=== PATIENT | male | born 1940 | race Caucasian/White ===

== ENCOUNTER → 2019-07-18 | Outpatient (CLI) | payer OTHER | END | disposition home or self-care (01) | LOC: SHCH 12:46 | PROVIDERS: ATTEND Internal Medicine Cardiovascular Disease | DX: I65.23 Occlusion and stenosis of bilateral carotid arteries (principal); I06.9 Rheumatic aortic valve disease, unspecified; I11.9 Hypertensive heart disease without heart failure | CPT/HCPCS: 93306; 93880 ==

== ENCOUNTER → 2021-03-19 | Outpatient (CLI) | payer OTHER | END | disposition home or self-care (01) | LOC: SHCH 11:11 | PROVIDERS: ATTEND Internal Medicine Cardiovascular Disease | DX: I25.10 Atherosclerotic heart disease of native coronary artery without angina pectoris (principal); R06.02 Shortness of breath | CPT/HCPCS: 93306; 93356 ==

== ENCOUNTER → 2021-04-18 | Outpatient (CLI) | payer OTHER ==
[~2021-04-18] VITALS: Ht 167.6 cm; Wt 88.0 kg
[~2021-04-18] MED LIST: REGADENOSON 0.4 MG/5 ML PF SYG IVP SCH
== END | disposition home or self-care (01) ==
LOC: SHCH 08:40
PROVIDERS: ATTEND Internal Medicine Cardiovascular Disease
DX: I20.9 Angina pectoris, unspecified (principal); R07.9 Chest pain, unspecified; R06.09 Other forms of dyspnea
CPT/HCPCS: 78452; 93017; 96374; A9500 ×2; J2785

== ENCOUNTER 2022-08-27 06:52 | Observation (INO) | payer OTHER ==
[2022-08-25 11:28] VITALS: BP 151/65
[2022-08-25 11:29] LABS: BASOPHILS % (AUTO) 1.4 % (0.0-5.0); EOSINOPHILS % (AUTO) 4.4 % (0.0-8.0); HEMATOCRIT 38.8 % (42-54); LYMPHOCYTES % (AUTO) 27.8 % (21.0-51.0); MEAN CORPUSCULAR HEMOGLOBIN 30.4 pg (27.0-33.0); MEAN CORPUSCULAR HGB CONC 32.7 g/dL (32.0-36.0); MEAN CORPUSCULAR VOLUME 92.8 fL (79-99); MONOCYTES % (AUTO) 8.6 % (3.0-13.0); NEUTROPHILS % (AUTO) 57.4 % (40.0-77.0); PLATELET COUNT (AUTO) 223 K/uL (130-400); RED BLOOD CELL COUNT(AUTO) 4.18 MIL/uL (4.50-6.20); RED CELL DISTRIBUTION WIDTH 13.2 % (11.0-15.5); WHITE BLOOD COUNT (AUTO) 7.2 K/uL (4.8-10.8)
[2022-08-25 11:32] LABS: APPEARANCE,URINE CLEAR (CLEAR); BILIRUBIN,URINE NEGATIVE (NEGATIVE); COLOR,URINE YELLOW (YELLOW); GLUCOSE, URINE (UA) NEGATIVE (NEGATIVE); KETONES,URINE NEGATIVE (NEGATIVE); LEUKOCYTE ESTERASE ,URINE NEGATIVE Leu/uL (NEGATIVE); NITRATE,URINE NEGATIVE (NEGATIVE); OCCULT BLOOD,URINE NEGATIVE (NEGATIVE); PROTEIN,URINE NEGATIVE (NEGATIVE); UROBILINOGEN,URINE 0.2 mg/dL (0.2-1.0)
[2022-08-25 11:39] LABS: INR 1.07 (0.85-1.15); PROTHROMBIN TIME 11.6 SEC (9.6-11.6)
[2022-08-25 11:40] LABS: PARTIAL THROMBOPLASTIN TIME 28.1 SEC (26.3-35.5)
[2022-08-25 11:56] LABS: POTASSIUM 4.1 mmol/L (3.5-5.1)
[2022-08-25 12:45] LABS: B-TYPE NATRIURETIC PEPTIDE 72 pg/mL (0-100)
[2022-08-27] VITALS (17 sets, daily range): BP systolic 112–168; BP diastolic 47–77
[~2022-08-27] VITALS: Ht 165.1 cm; Wt 81.8 kg
[~2022-08-27 06:52] MED LIST changes: +ATOR40TA71 PO; +INSU100V12 SQ; +ISOS60TA77 PO; +LEVO50CA4 PO; +LOSA50TA64 PO; +METF-446 PO; +METO25TA6 PO; +MONT-39 PO; +OMEP20TA20 PO; -REGADENOSON 0.4 MG/5 ML PF SYG IVP SCH
[2022-08-27] MEDS ORDERED: 0.9%NACL 1000ML 1,000 ML IV ONE (07:39)
[2022-08-27] MEDS ORDERED: NITROGLYCERIN 0.4 MG SL TAB SL PRN ×2 (08:30→11:30)
[2022-08-27] MEDS ORDERED: METOPROLOL TARTRATE 1 MG/ML 5ML VIAL IV PRN ×2 (08:30→11:30)
[2022-08-27] MEDS ORDERED: DEXTROSE 50%-WATER 50 ML DISP.SYRIN IV PRN ×2 (08:30→11:30)
[2022-08-27] MEDS ORDERED: GLUCAGON 1MG KIT 1 MG ML IM PRN ×2 (08:30→11:30)
[2022-08-27] MEDS ORDERED: NITROGLYCERIN 50MG VIAL ONE (08:58)
[2022-08-27] MEDS ORDERED: IOHEXOL 350 MG/ML 100ML INFUS..BTL IV ONE (08:58)
[2022-08-27] MEDS ORDERED: HEPARIN 10,000 UNIT/10ML (1,000 UNIT/ML) VIAL ONE (08:58)
[2022-08-27] MEDS ORDERED: LIDOCAINE HCL 1% 20 ML VIAL ONE (08:58)
[2022-08-27] MEDS ORDERED: BIVALIRUDIN 250 MG/VIAL IV ONE (08:58)
[2022-08-27] MEDS ORDERED: FENTANYL CITRATE PF 50 MCG/1 ML 2ML VIAL ONE (08:59)
[2022-08-27] MEDS ORDERED: MIDAZOLAM HCL 1 MG/ML 2ML VIAL ONE (08:59)
[2022-08-27] MEDS ORDERED: IOHEXOL-350 75 ML VIAL IV ONE ×2 (09:24→10:33)
[2022-08-27] MEDS ORDERED: TICAGRELOR 90 MG TABLET ONE (10:05)
[2022-08-27] MEDS ORDERED: LABETALOL 20MG VIAL IV ONE (10:15)
[2022-08-27] MEDS ORDERED: HYDRALAZINE 20MG/ML VIAL ONE (10:15)
[2022-08-27] MEDS ORDERED: ACETAMINOPHEN WITH CODEINE 1 TAB TAB PO PRN (11:30)
[2022-08-27] MEDS ORDERED: INSULIN HUMULIN R 100 UNIT/ML 3ML SQ SCH (11:30)
[2022-08-27] MEDS ORDERED: 0.9%NACL 1000ML 1,000 ML IV SCH (11:30)
[2022-08-27] MEDS: INSULIN HUMULIN R 100 UNIT/ML 3ML SQ SCH ×3 (12:00→21:00)
[2022-08-27] MEDS ORDERED: ACETAMINOPHEN 500 MG TABLET ONE (13:29)
[2022-08-27] MEDS ORDERED: HYDRALAZINE 20MG/ML VIAL IV PRN (19:30)
[2022-08-27] MEDS ORDERED: LABETALOL 20MG VIAL IV PRN (19:30)
[2022-08-27] MEDS: LOSARTAN 50 MG TABLET PO SCH (20:25)
[2022-08-27] MEDS: METOPROLOL TARTRATE 25 MG TAB PO SCH (20:25)
[2022-08-27] MEDS: PANTOPRAZOLE 40 MG TAB DR PO SCH (20:26)
[2022-08-27] MEDS ORDERED: ATORVASTATIN 40 MG TABLET PO SCH (21:00)
[2022-08-27] MEDS ORDERED: MONTELUKAST SODIUM 10 MG TAB PO SCH (21:00)
[2022-08-27] MEDS: INSULIN GLARGINE 100 UNITS/ML SQ SCH (21:18)
[2022-08-28 00:06] VITALS: BP 139/85
[2022-08-28 03:06] VITALS: BP 135/60
[2022-08-28 04:32] LABS: BASOPHILS % (AUTO) 0.9 % (0.0-5.0); HEMATOCRIT 37.3 % (42-54); LYMPHOCYTES % (AUTO) 31.3 % (21.0-51.0); MEAN CORPUSCULAR HEMOGLOBIN 29.9 pg (27.0-33.0); MEAN CORPUSCULAR HGB CONC 33.8 g/dL (32.0-36.0); MEAN CORPUSCULAR VOLUME 88.6 fL (79-99); MONOCYTES % (AUTO) 9.1 % (3.0-13.0); NEUTROPHILS % (AUTO) 54.4 % (40.0-77.0); PLATELET COUNT (AUTO) 244 K/uL (130-400); RED BLOOD CELL COUNT(AUTO) 4.21 MIL/uL (4.50-6.20); RED CELL DISTRIBUTION WIDTH 13.6 % (11.0-15.5); WHITE BLOOD COUNT (AUTO) 10.5 K/uL (4.8-10.8)
[2022-08-28 04:50] LABS: CREATININE 1.1 mg/dL (0.5-1.5); MAGNESIUM 1.4 mg/dL (1.80-2.40); PHOSPHORUS 3.7 mg/dL (2.5-4.9); POTASSIUM 3.4 mmol/L (3.5-5.1)
[2022-08-28] MEDS ORDERED: MAGNESIUM 2GM PREMIX 50ML 50 ML IV PRN (05:30)
[2022-08-28] MEDS ORDERED: POTASSIUM CHLORIDE 20MEQ/100ML 100 ML IV PRN (05:30)
[2022-08-28] MEDS ORDERED: POTASSIUM CHLORIDE 10% ELIXIR 20 MEQ/15 ML UDCUP PO PRN (05:30)
[2022-08-28] MEDS ORDERED: KCL 20 MEQ ERTAB PO PRN (05:30)
[2022-08-28] MEDS ORDERED: LIDOCAINE HCL-MPF 1% 2ML VIAL IV PRN (05:30)
[2022-08-28] MEDS ORDERED: LEVOTHYROXINE 50 MCG TABLET PO SCH (06:30)
[2022-08-28] MEDS: INSULIN HUMULIN R 100 UNIT/ML 3ML SQ SCH ×2 (06:48→11:37)
[2022-08-28] MEDS: LOSARTAN 50 MG TABLET PO SCH (08:34)
[2022-08-28] MEDS: METOPROLOL TARTRATE 25 MG TAB PO SCH (08:34)
[2022-08-28] MEDS: PANTOPRAZOLE 40 MG TAB DR PO SCH (08:34)
[2022-08-28] MEDS: INSULIN GLARGINE 100 UNITS/ML SQ SCH (08:44)
[2022-08-28 08:49] VITALS: BP 156/78
[2022-08-28] MEDS ORDERED: ASPIRIN 81 MG EC TAB PO SCH (09:00)
[2022-08-28] MEDS ORDERED: ISOSORBIDE MONO 60MG SR TAB PO SCH (09:00)
[2022-08-28] MEDS ORDERED: CLOPIDOGREL 75MG TAB PO SCH (09:00)
[2022-08-28 10:16] LABS: MAGNESIUM 1.8 mg/dL (1.80-2.40); POTASSIUM 3.6 mmol/L (3.5-5.1)
[2022-08-28 12:07] VITALS: BP 123/61
== END 2022-08-28 14:38 | disposition home or self-care (01) ==
LOC: DAH 06:52 → DAHIP 06:53 → 2DH 15:16
PROVIDERS: ADMIT Hospitalist; ATTEND Hospitalist
DX: I25.110 Atherosclerotic heart disease of native coronary artery with unstable angina pectoris (principal); I11.0 Hypertensive heart disease with heart failure; I50.32 Chronic diastolic (congestive) heart failure; E11.9 Type 2 diabetes mellitus without complications; E03.9 Hypothyroidism, unspecified; E78.5 Hyperlipidemia, unspecified; Z51.5 Encounter for palliative care; Z95.1 Presence of aortocoronary bypass graft; Z95.5 Presence of coronary angioplasty implant and graft; Z79.4 Long term (current) use of insulin; Z90.49 Acquired absence of other specified parts of digestive tract; Z79.899 Other long term (current) drug therapy; Z98.890 Other specified postprocedural states
CPT/HCPCS: 80048 ×2; 83880; 85025 ×2; 85610; 85730; 81003; 36415 ×2; 93005; 93306; 93455; 92921; 96372 ×2; 82948 ×7; 71045; 96365; 96366; 83735 ×2; 84100; 84132; C1887 ×2; C1894 ×2; C1769 ×2; C1760; C1874; C1725 ×2; Q9965 ×2; G0378 ×28; J3010; J7030; J0360; J2250; J3490 ×2; J1644; J0583; Q9967 ×3; A4215; A4223 ×3; A4222; A4221; A4663; A4216; A4606; C9600; J3475; J1815; 92920; 99156; 99157

== ENCOUNTER → 2024-03-10 | Outpatient (CLI) | payer OTHER | END | disposition home or self-care (01) | LOC: SHCH 10:41 | PROVIDERS: ATTEND Internal Medicine Cardiovascular Disease | DX: I11.9 Hypertensive heart disease without heart failure (principal); R01.1 Cardiac murmur, unspecified; I35.0 Nonrheumatic aortic (valve) stenosis; E11.9 Type 2 diabetes mellitus without complications; E78.5 Hyperlipidemia, unspecified; Z95.1 Presence of aortocoronary bypass graft | CPT/HCPCS: 93306 ==